=== PATIENT | female | born 1950 ===

== ENCOUNTER 2018-01-07 11:04 | Day surgery (SDC) | payer MEDICARE, MEDICAID ==
[2015-03-19 10:45] VITALS: BMI 22.2
[2018-01-07 11:31] VITALS: BP 143/84; PULSE 73; RESP 18; TEMP 97.6; O2SAT 97
== END 2018-01-07 14:43 | disposition home or self-care (01) ==
LOC: C.SDS 11:04
PROVIDERS: ATTEND Urology
DX: R31.21 Asymptomatic microscopic hematuria (principal); Z53.9 Procedure and treatment not carried out, unspecified reason
CPT/HCPCS: 52000; 82948; P000X

== ENCOUNTER 2018-02-04 07:21 | Day surgery (SDC) | payer MEDICARE, MEDICAID ==
[2018-02-04 07:39] VITALS: BMI 23.4
--- NOTE | 2018-02-04 08:26 | RAD ---
Date of service: 02/04/2018 PROCEDURE: CHEST RADIOGRAPH, 1 VIEW HISTORY: STAT CXR DONE IN [facility] DEPT COMPARISON: None available. FINDINGS: LUNGS: Clear. PLEURA: No pneumothorax or pleural fluid seen. CARDIOVASCULAR: There is absence of aortic atherosclerotic calcification on x-ray. Normal heart size. Top-normal pulmonary venous status OSSEOUS STRUCTURES: No significant abnormalities. VISUALIZED UPPER ABDOMEN: Normal. OTHER FINDINGS: None. IMPRESSION: No acute cardiopulmonary pathology noted.
[2018-02-04] MEDS ORDERED: Iohexol 240 (50 ml) ONE (11:26)
[2018-02-04] MEDS ORDERED: cefTRIAXone 1 gm 1 GM/100 ML BAG IVPB ONE (11:26)
[2018-02-04] MEDS ORDERED: Lidocaine 2% Jelly (Uro-Jet) ONE (11:26)
[2018-02-04] MEDS ORDERED: Propofol 10 mg/ml Inj (20 ML) ONE (11:29)
[2018-02-04] MEDS ORDERED: Midazolam 2 MG/2 ML VIAL ONE (11:29)
[2018-02-04 14:00] VITALS: RESP 16; O2SAT 97
[2018-02-04 16:03] VITALS: BP 122/72; PULSE 65; TEMP 97.7
--- NOTE | 2018-02-04 16:40 | RAD ---
Date of service: 02/04/2018 HISTORY: HEMATURIA COMPARISON: None available. FINDINGS: BOWEL: Nonobstructive gas pattern. Severe constipation. BONES: Osseous demineralization. Degenerative changes. Sclerosis of the L5 vertebral body. OTHER FINDINGS: 2 mm calcification projects over the left upper quadrant, possibly renal calculus although debris related to overlying bowel cannot be excluded. IMPRESSION: 2 mm calcification projects over the left upper quadrant, possibly renal calculus although debris related to overlying bowel cannot be excluded. Severe constipation. Sclerosis of the L5 vertebral body. MRI may be considered for further evaluation.
--- NOTE | 2018-02-04 17:17 | RAD ---
PROCEDURE: HISTORY: As Above COMPARISON: None TECHNIQUE: Total fluoroscopic time utilized during the procedure: 1.1 seconds. Total dose 0.63034 mGy m squared FINDINGS: Submitted images from the current procedure: 1 please refer to the physician's notes performing the procedure. IMPRESSION: Less than 1 hour fluoroscopic time utilized during performance of the procedure
--- NOTE | 2018-02-14 12:44 | HP ---
REASON FOR ADMISSION: Workup of hematuria, abdominal pain and discomfort. (Please see below addendum and the operative note). HISTORY OF PRESENT ILLNESS: The patient is brought in by her sister who is taking care of her. She is disabled from her . She actually is in a wheelchair. The patient has apparent gross hematuria and she is being brought in for workup and evaluation . No history of PR or CVA. SOCIAL HISTORY: Her sister takes care of her, otherwise unremarkable. REVIEW OF SYSTEMS: As listed above, otherwise noncontributory. No weight loss, chest pain, shortness of breath. She also has abdominal pain and hematuria. MEDICATIONS: See chart. ALLERGIES: SEE CHART. PHYSICAL EXAMINATION: GENERAL: Well-nourished female, in no apparent distress. VITAL SIGNS: Noted within relatively normal limits. LUNGS: Clear. HEART: Normal S1 and S2. ABDOMEN: Overall soft, nontender. No flank mass. PELVIC: She does not have any pelvic or rectal masses or obvious masses, although she did have gross blood per vagina, but no masses are appreciated. DIAGNOSIS: "Hematuria." PLAN: In summary, the plan is as follows: We are going to bring the patient in for a diagnostic workup including cystoscopy, possible biopsy, retrograde, etc. Further plans will follow depending on what we find clinically. Risks and benefits discussed at length. The plan is as follows: 1. Antibiotic prophylaxis. 2. Cystoscopy. 3. Retrograde pyelogram. 4. Possible biopsy. I do want to mention the following: To the operative, no further deals, but upon further inspection, there appears to be gross blood per the vagina, I do not feel any masses. I discussed with her family that she needs a [employer] followup. We did the cysto retrograde for the hematuria component, but she needs [employer] followup. Erik Cho MD
--- NOTE | 2018-02-14 14:59 | OP ---
PROCEDURE DATE: 02/04/2018 SURGEON: Erik Cho MD PREOPERATIVE DIAGNOSES: Hematuria, voiding dysfunction, frequency, and abdominal pain. POSTOPERATIVE DIAGNOSES: Hematuria, voiding dysfunction, frequency, and abdominal pain; and apparently there may be blood per vagina. PROCEDURES: Exam under anesthesia, cystoscopy, bilateral retrograde pyelograms (on left side, we were not able to perform left retrograde). We attempted multiple attempts, but again seems like seeing blood per the vagina. I am thinking this is more the abdominal pain and the blood in vagina needs the gynecologic workup. If they do not find anything, then we will do our further workup. I do not feel any pelvic or rectal masses. DESCRIPTION OF PROCEDURE: After obtaining informed consent, the patient was placed on the table. Routine monitors were placed. Time-out was called to confirm the patient and positioning. Cystoscope introduced via the urethra and when we inserted the Pickett, we introduced the cystoscope, I saw blood per vagina. Again given the patient's age and her status, does not appear to be a period, and of great concern and perhaps this is a confusion for the patient between blood in her urine and blood in her vagina. Anyway, we continued the procedure as follows, the bladder was inspected carefully. I did not see any bladder lesion. Clear efflux was noted from the right side and the right retrograde pyelogram was performed. The left side, I did not see well. I attempted gently to see if I could probe the orifice without making too much damage. Overall, the patient tolerated the procedure well. The bladder was emptied and cystoscope removed. Normal upper tracts appear to be there. We are going to send the films to the radiologist. I do want to mention that at this point though that the bladder is emptied. Examination revealed no pelvic or rectal masses, but the blood is definitely there per vagina. The patient tolerated the procedure without complications. ADDENDUM I discussed with the sister and made further recommendations that they need to see a [employer] EXECUTIVE doctor and then if there is still no findings. Because she is complaining basically of pain and she has blood per vagina, needs further workup to rule out any malignancy. I explained this to the patient in great detail to the family and to the sister in detail. Erik Cho MD [facility] # [id number]
== END 2018-02-04 15:10 | disposition home or self-care (01) ==
LOC: C.SDS 07:21
PROVIDERS: ATTEND Urology
DX: R31.29 Other microscopic hematuria (principal); R10.9 Unspecified abdominal pain; N93.9 Abnormal uterine and vaginal bleeding, unspecified
CPT/HCPCS: 52005; 71045; 74018; 82948; C1758; J0696